=== PATIENT | female | born 1945 | race Caucasian/White ===

== ENCOUNTER 2017-07-21 17:51 | Emergency (ER) | payer MEDICARE, BC ==
[2017-07-21] MEDS ORDERED: PREDNISONE 20 MG TABLET PO ONE (18:32)
[2017-07-21] MEDS ORDERED: IPRATROPIUM/ALBUTEROL 0.5-2.5 MG/3 ML AMPUL NEB ONE (18:32)
--- NOTE | 2017-07-21 18:36 | ER Document Report ---
ED Medical Screen (RME) - General Chief Complaint: Chest Pain Stated Complaint: CHEST PRESSURE, DIFFICULTY BREATHING Time Seen by Provider: 07/21/17 18:25 Notes: RAPID MEDICAL EVALUATION DISCLOSURE I have seen this patient as part of a Rapid Medical Evaluation and, if applicable, placed any initially appropriate orders. The patient will be seen and fully evaluated, including a full history and physical exam, by a provider ( in Main ED or Fast Track) when a room becomes available. 72-year-old female PMH COPD here with complaints of wheezing cough productive of yellow/green sputum ongoing for the past 3 weeks but she is here tonight because earlier today she started to have some midsternal nonradiating chest pressure as well as shortness of breath that is worse with coughing as well as exertion. She has not had pneumonia in several years now. She has been using her inhaler with minimal relief. EXAM Scant end expiratory wheezes diffusely Normal aeration throughout NOTE Oxygen saturation 89-91% in PIT TRAVEL OUTSIDE OF THE [place] IN LAST 30 DAYS: No - Related Data Allergies/Adverse Reactions: No Known Allergies Allergy (Verified 07/21/17 17:52) Past Medical History - Social History Frequency of alcohol use: Rare Drug Abuse: None - Past Medical History Cardiac Medical History: Denies: Hx Coronary Artery Disease, Hx Heart Attack, Hx Hypertension Pulmonary Medical History: Reports: Hx Asthma, Hx Bronchitis, Hx COPD, Hx Pneumonia Neurological Medical History: Denies: Hx Cerebrovascular Accident, Hx Seizures Renal/ Medical History: Denies: Hx Peritoneal Dialysis GI Medical History: Denies: Hx Hepatitis, Hx Hiatal Hernia, Hx Ulcer Musculoskeltal Medical History: Reports Hx Arthritis - hands Infectious Medical History: Denies: Hx Hepatitis Past Surgical History: Denies: Hx Hysterectomy, Hx Mastectomy, Hx Open Heart Surgery, Hx Pacemaker - Immunizations Hx Diphtheria, Pertussis, Tetanus Vaccination: Yes Physical Exam - Vital signs Vitals: Temp Pulse Resp BP Pulse Ox 98.8 F 96 16 111/70 91 L 07/21/17 18:14 07/21/17 18:14 07/21/17 18:14 07/21/17 18:14 07/21/17 18:14 Course - Vital Signs Vital signs: Temp Pulse Resp BP Pulse Ox 98.8 F 96 16 111/70 91 L 07/21/17 18:14 07/21/17 18:14 07/21/17 18:14 07/21/17 18:14 07/21/17 18:14 Doctor's Discharge - Discharge Referrals: MILY MORENO MD [Primary Care Provider] - Follow up as needed
[2017-07-21 19:05] LABS: ABSOLUTE EOSINOPHILS # (AUTO) 0.1 10^3/uL (0.0-0.6); ABSOLUTE LYMPHOCYTES (AUTO) 1.3 10^3/uL (0.5-4.7); ABSOLUTE MONOCYTES (AUTO) 1.1 10^3/uL (0.1-1.4); ABSOLUTE NEUT (AUTO) 8.1 10^3/uL (1.7-8.2); BASOPHILS % (AUTO) 0.3 % (0-2); EOSINOPHILS % (AUTO) 0.7 % (0-6); HEMATOCRIT 37.4 % (36.0-47.0); HEMOGLOBIN 12.8 g/dL (12.0-15.5); LYMPHOCYTES % (AUTO) 12.6 % (13-45); MEAN CORPUSCULAR HEMOGLOBIN 30.1 pg (27.0-33.4); MEAN CORPUSCULAR HGB CONC 34.3 g/dL (32.0-36.0); MEAN CORPUSCULAR VOLUME 88 fl (80-97); MONOCYTES % (AUTO) 10.6 % (3-13); PLATELET COUNT 331 10^3/uL (150-450); RED BLOOD COUNT 4.27 10^6/uL (3.72-5.28); RED CELL DISTRIBUTION WIDTH 13.6 % (11.5-14.0); SEGMENTED NEUTROPHILS % (AUTO) 75.8 % (42-78); TOTAL CELLS COUNTED % (AUTO) 100 %; WHITE BLOOD COUNT 10.6 10^3/uL (4.0-10.5)
--- NOTE | 2017-07-21 19:14 | RADIOLOGY REPORT (SQ) ---
EXAM DESCRIPTION: CHEST 2 VIEWS COMPLETED DATE/TIME: 07/21/2017 6:51 pm REASON FOR STUDY: CP SOB cough hypoxia COMPARISON: 07/11/2012 EXAM PARAMETERS: NUMBER OF VIEWS: two views TECHNIQUE: Digital Frontal and Lateral radiographic views of the chest acquired. RADIATION DOSE: NA LIMITATIONS: none FINDINGS: LUNGS AND PLEURA: No acute opacities, masses or pneumothorax. No pleural effusion. MEDIASTINUM AND HILAR STRUCTURES: Stable. HEART AND VASCULAR STRUCTURES: Stable. BONES: No acute findings. HARDWARE: None in the chest. OTHER: No other significant finding. IMPRESSION: NO ACUTE RADIOGRAPHIC FINDING IN THE CHEST. TECHNICAL DOCUMENTATION: JOB ID: [id number] [id number] 2010 [employer]- All Rights Reserved Reading location - IP/workstation name: [facility]
[2017-07-21 19:22] LABS: ANION GAP 8 (5-19); BLOOD UREA NITROGEN 18 mg/dL (7-20); CALCIUM 9.2 mg/dL (8.4-10.2); CARBON DIOXIDE 31 mmol/L (22-30); CHLORIDE 91 mmol/L (98-107); GLUCOSE 95 mg/dL (75-110); POTASSIUM 4.1 mmol/L (3.6-5.0); SODIUM 129.9 mmol/L (137-145)
[2017-07-21 19:34] LABS: NT PRO BNP 69 pg/mL (5-900)
[2017-07-21 19:35] LABS: TROPONIN I < 0.012 ng/mL
--- NOTE | 2017-07-21 19:37 | EKG REPORT ---
SEVERITY:- ABNORMAL ECG - SINUS RHYTHM ATRIAL PREMATURE COMPLEX BIATRIAL ABNORMALITIES BORDERLINE R WAVE PROGRESSION, ANTERIOR LEADS : Confirmed by: Gus Jewell MD 21-Jul-2017 19:36:35
[2017-07-21 19:56] LABS: ARTERIAL BLOOD H2CO3 1.09 mmol/L (1.05-1.35); ARTERIAL BLOOD HCO3 26.4 mmol/L (20-26); ARTERIAL BLOOD O2 SATURATION 96.2 % (94-98); ARTERIAL BLOOD PCO2 36.2 mmHg (35-45); ARTERIAL BLOOD PH 7.48 (7.35-7.45); ARTERIAL BLOOD PO2 76.9 mmHg (80-100); ARTERIAL BLOOD TOTAL CO2 27.5 mmol/L (21-25)
[2017-07-21 20:01] LABS: ARTERIAL BLOOD FIO2 1.5L
[2017-07-21] MEDS ORDERED: MAG HYDROX/AL HYDROX/SIMETH SUSP 30 ML UDCUP PO ONE (20:07)
[2017-07-21] MEDS ORDERED: LIDOCAINE 2% VISCOUS SOLN 20 ML UDCUP PO ONE (20:07)
[2017-07-21] MEDS ORDERED: METOCLOPRAMIDE HCL ORAL SOLN 10 MG/10 ML UDCUP PO ONE (20:07)
--- NOTE | 2017-07-21 20:08 | ER Document Report ---
ED General - General Chief Complaint: Chest Pain Stated Complaint: CHEST PRESSURE, DIFFICULTY BREATHING Time Seen by Provider: 07/21/17 18:25 Notes: The patient is a 72 year old female with a past medical history of emphysema with intermittent oxygen dependence who presents with 3-4 weeks of persistent coughing as well as 4-5 days of persistent chest pressure. The patient attributes this pain to her persistent episodes of coughing but given the ongoing pain she was concerned about the possibility of a cardiac event so came to the emergency department today. Nothing is new or different about her symptoms today relative to the past several days that prompted her to come to the ER today. He has no known history of coronary artery disease, has never had a cardiac catheterization. He has not seen her primary doctor regarding today's concerns. She has been treated with steroids and antibiotics of her persistent cough without resolution. Her spouse at the bedside had a similar issue but has since recovered from his persistent coughing. The patient has been using her nebulizers at home with some improvement of her symptoms. Nothing seems to improve or worsen her pain. She denies any associated pain to the arms, jaw or back nausea or vomiting. TRAVEL OUTSIDE OF THE [place] IN LAST 30 DAYS: No - Related Data Allergies/Adverse Reactions: No Known Allergies Allergy (Verified 07/21/17 17:52) Past Medical History - General Information source: Patient - Social History Smoking Status: Former Smoker Frequency of alcohol use: Rare Drug Abuse: None Lives with: Spouse/Significant other Family History: Reviewed & Not Pertinent Patient has suicidal ideation: No Patient has homicidal ideation: No - Past Medical History Cardiac Medical History: Denies: Hx Coronary Artery Disease, Hx Heart Attack, Hx Hypertension Pulmonary Medical History: Reports: Hx Asthma, Hx Bronchitis, Hx COPD, Hx Pneumonia Neurological Medical History: Denies: Hx Cerebrovascular Accident, Hx Seizures Renal/ Medical History: Denies: Hx Peritoneal Dialysis GI Medical History: Denies: Hx Hepatitis, Hx Hiatal Hernia, Hx Ulcer Musculoskeltal Medical History: Reports Hx Arthritis - hands Infectious Medical History: Denies: Hx Hepatitis Past Surgical History: Denies: Hx Hysterectomy, Hx Mastectomy, Hx Open Heart Surgery, Hx Pacemaker - Immunizations Hx Diphtheria, Pertussis, Tetanus Vaccination: Yes Review of Systems - Review of Systems Notes: Constitutional: Negative for fever. HENT: Negative for sore throat. Eyes: Negative for visual changes. Cardiovascular: Positive for chest pain. Respiratory: Positive for shortness of breath and persistent cough Gastrointestinal: Negative for abdominal pain, vomiting or diarrhea. Genitourinary: Negative for dysuria. Musculoskeletal: Negative for back pain. Skin: Negative for rash. Neurological: Negative for headaches, weakness or numbness. 10 point ROS negative except as marked above and in HPI. Physical Exam - Vital signs Vitals: Temp Pulse Resp BP Pulse Ox 98.8 F 96 16 111/70 91 L 07/21/17 18:14 07/21/17 18:14 07/21/17 18:14 07/21/17 18:14 07/21/17 18:14 Interpretation: Hypoxic - Baseline on room air Notes: PHYSICAL EXAMINATION: GENERAL: Well-appearing, well-nourished and in no acute distress. HEAD: Atraumatic, normocephalic. EYES: Pupils equal round and reactive to light, extraocular movements intact, sclera anicteric, conjunctiva are normal. ENT: nares patent, oropharynx clear without exudates. Moist mucous membranes. NECK: Normal range of motion, supple without lymphadenopathy LUNGS: Breath sounds clear to auscultation bilaterally and equal. No wheezes rales or rhonchi. HEART: Regular rate and rhythm without murmurs ABDOMEN: Soft, nontender, normoactive bowel sounds. No guarding, no rebound. No masses appreciated. EXTREMITIES: Normal range of motion, no pitting or edema. No cyanosis. NEUROLOGICAL: No focal neurological deficits. Moves all extremities spontaneously and on command. PSYCH: Normal mood, normal affect. SKIN: Warm, Dry, normal turgor, no rashes or lesions noted. Course - Re-evaluation Re-evalutation: 07/21/17 20:07 Presentation of chest pain in an otherwise well appearing patient. Low clinical suspicion for ACS given clinical history, exam, EKG without ST elevations or depressions, and negative initial troponin. HEART score less than or equal to 3. PE also seems unlikely given clinical history, absence of tachycardia or dyspnea. Patient is PERC criteria negative. CXR without evidence of pneumothorax or pneumonia. No widened mediastinum. Aortic dissection also seems unlikely given history, symmetric pulses, CXR, and vitals. Patient has been having this pain for greater than 3 days making serial troponins are not indicated as if her pain had been an infarction event the troponin would already be elevated. The patient is agreeable to a single troponin here in the emergency department. Likewise her clinical history appears to be much more consistent with chest wall irritation or esophageal irritation from recurrent coughing for over the past 25 days. At this time will discharge with return precautions and follow-up recommendations. Verbal discharge instructions given a the bedside and opportunity for questions given. Medication warnings reviewed. Patient is in agreement with this plan and has verbalized understanding of return precautions and the need for primary care follow-up in the next 24-72 hours. - Vital Signs Vital signs: Temp Pulse Resp BP Pulse Ox 98.8 F 96 20 104/73 92 07/21/17 18:14 07/21/17 18:14 07/21/17 20:02 07/21/17 20:02 07/21/17 20:02 - Laboratory Result Diagrams: 07/21/17 18:46 07/21/17 18:46 Laboratory results interpreted by me: 07/21/17 07/21/17 07/21/17 18:46 18:46 19:40 WBC 10.6 H Lymphocytes % 12.6 L ABG pH 7.48 H ABG pO2 76.9 L ABG HCO3 26.4 H ABG Total CO2 27.5 H Sodium 129.9 L Chloride 91 L Carbon Dioxide 31 H - Diagnostic Test Radiology reviewed: Image reviewed, Reports reviewed Radiology results interpreted by me: 07/21/17 20:06 Chest x-ray: No acute infiltrate or pneumothorax. - EKG Interpretation by Me Additional EKG results interpreted by me: 07/21/17 20:06 Sinus rhythm. Rate 96. No ST elevations or depressions. QTC is 450 Discharge - Discharge Clinical Impression: Chronic cough, Bronchitis Chest pain Qualifiers: Chest pain type: unspecified Qualified Code(s): R07.9 - Chest pain, unspecified Condition: Good Disposition: HOME, SELF-CARE Additional Instructions: You were seen today for chest pain. The exact cause of your pain is unclear. It is likely due to either your esophagus or chronic chest wall discomfort from recurrent coughing. However, based on your cardiac enzyme testing, chest x-ray , and EKG it does not appear that it is from an immediately life-threatening cause at this time. Although your testing here is normal is critical that you follow-up with your primary care physician for continued evaluation of this chest pain and possible stress testing. I recommended you see your physician within the next 24-48 hours to be evaluated for consideration of a stress test. Please return to emergency department immediately if you have worsening of your chest pain, shortness of breath, vomiting, become unable to exert yourself due to pain or difficulty breathing, you pass out, or have any pain that radiates into your arms, jaw, or back. Please also return if you have any additional symptoms that are concerning to you. Referrals: MILY MORENO MD [HONORARY] - Follow up as needed
[2017-07-21 20:30] VITALS: BP 104/73
== END 2017-07-21 20:35 | disposition home or self-care (01) ==
LOC: ER 17:51
DX: R07.9 Chest pain, unspecified (principal); J43.9 Emphysema, unspecified; R05 Cough; R06.02 Shortness of breath; Z99.81 Dependence on supplemental oxygen; I25.10 Atherosclerotic heart disease of native coronary artery without angina pectoris; Z87.891 Personal history of nicotine dependence
CPT/HCPCS: 93005; 94640; 99285; 36415; 82803; 85025; 80048; 84484; 83880; 71046; 93010; 36600; J3490; A9270 ×3; J7512; J7620